=== PATIENT | male | born 1990 | race Two or more races ===

== ENCOUNTER 2017-04-19 14:18 | Emergency (ER) | payer SELFPAY ==
[~2017-04-19] VITALS: Ht 182.9 cm; Wt 84.4 kg
[2017-04-19 14:35] VITALS: BP 114/53
== END 2017-04-19 15:59 | disposition home or self-care (01) ==
LOC: ER 14:18
DX: B08.4 Enteroviral vesicular stomatitis with exanthem (principal)

== ENCOUNTER 2017-12-11 22:06 | Emergency (ER) | payer SELFPAY ==
[~2017-12-11] VITALS: Ht 182.9 cm; Wt 86.2 kg
[2017-12-11 22:50] VITALS: BP 124/74
[2017-12-12] MEDS ORDERED: ONDANSETRON ODT 4 MG TAB PO ONE (01:30)
== END 2017-12-12 02:38 | disposition home or self-care (01) ==
LOC: ER 22:06
DX: L25.9 Unspecified contact dermatitis, unspecified cause (principal); R11.2 Nausea with vomiting, unspecified
CPT/HCPCS: 99283; Q0162

== ENCOUNTER 2018-04-15 17:54 | Emergency (ER) | payer MEDICAID ==
[~2018-04-15] VITALS: Ht 182.9 cm; Wt 84.4 kg
[2018-04-15 18:58] LABS: Basophils # (auto) 0.1 uL; Eosinophils # (auto) 0.1 uL; Eosinophils % (auto) 0.9 % (0.0-7.0); Lymphocytes # (auto) 1.6 uL; Monocytes # (auto) 0.6 uL; Red Cell Distribution Width 13.6 % (11.8-14.3)
[2018-04-15 18:59] LABS: Basophils % (auto) 0.7 % (0.0-2.0); Hematocrit 51.7 % (41.0-53.0); Lymphocytes % (auto) 19.2 % (10.0-50.0); Mean Corpuscular Hemoglobin 30.8 pg (28.0-32.0); Mean Corpuscular Hgb Conc. 34.8 g/dL (32.0-36.0); Mean Corpuscular Volume 88.4 fL (80.0-100.0); Neutrophils # (auto) 6.2 uL; Neutrophils % (auto) 72.2 % (37.0-80.0); Nucleated Red Blood Cells % 0.1 %; Platelet Count (auto) 243 10^3/uL (140-450); Red Blood Cells 5.84 10^6/uL (4.5-5.90); White Blood Cell 8.6 10^3/uL (4.4-10.8)
[2018-04-15] MEDS ORDERED: SODIUM CHLORIDE 0.9% 1,000 ML IV ONE (19:00)
[2018-04-15] MEDS ORDERED: ONDANSETRON HCL 4 MG/2 ML VIAL IV ONE (19:00)
[2018-04-15 19:09] LABS: Albumin 4.5 g/dL (3.4-5.0); BUN/Creatinine Ratio 8.7; Potassium 3.8 mmol/L (3.5-5.1)
[2018-04-15 19:12] LABS: Bilirubin, Total 0.9 mg/dL (0.2-1.0); Total Protein 8.7 g/dL (6.4-8.2)
[2018-04-15] MEDS ORDERED: ALUM & MAG HYDROX-SIMETH LIQ(MAALOX) 30 ML PO ONE ×2 (20:30→20:45)
[2018-04-15] MEDS ORDERED: LIDOCAINE VISCOUS 2% 15ML UD PO ONE (20:45)
[2018-04-15] MEDS ORDERED: DONNATAL 5ml ORAL Elix (BELLADONNA ALK-PHENOBARB) PO ONE (20:45)
[2018-04-15 21:00] LABS: Urine Bacteria NONE SEEN /hpf (None Seen); Urine Blood Negative /uL (Negative); Urine Mucus FEW (None Seen); Urine Specific Gravity 1.015 (1.001-1.035); Urine WBC 7 /hpf (0 - 3)
[2018-04-15 21:01] VITALS: BP 132/73
[2018-04-15 21:08] LABS: Alcohol, Urine < 3.0 mg/dL (0-5); Amphetamine Screen, Urine NEGATIVE (NEGATIVE); Barbiturate Scree,Urine NEGATIVE (NEGATIVE); Benzodiazephine Screen, Urine NEGATIVE (NEGATIVE); Cannabinoid Screen, Urine POSITIVE (NEGATIVE); Cocaine Screen, Urine NEGATIVE (NEGATIVE); Opiate Scree,Urine NEGATIVE (NEGATIVE); Phencyclidine Screen, Urine NEGATIVE (NEGATIVE)
== END 2018-04-15 18:44 | disposition home or self-care (01) ==
LOC: ER 17:54
DX: K29.00 Acute gastritis without bleeding (principal)
CPT/HCPCS: 36415; 80053; 80307; 81001; 83690; 85025; 96361; 96374; 99285; J2405; J7030